=== PATIENT | female | born 1980 ===

== ENCOUNTER → 2020-07-16 | Day surgery (SDC) | payer OTHER | END | disposition home or self-care (01) | LOC: ADM 07-09 08:00 → CIR.AMB 07:00 | PROVIDERS: ATTEND Surgery | DX: K42.0 Umbilical hernia with obstruction, without gangrene (principal); K43.6 Other and unspecified ventral hernia with obstruction, without gangrene; Z20.828 Contact with and (suspected) exposure to other viral communicable diseases ==